=== PATIENT | male | born 1960 | race Caucasian/White ===

== ENCOUNTER 2016-07-14 02:09 | Emergency (ER) | payer OTHER ==
[~2016-07-14] VITALS: Ht 177.8 cm; Wt 160.0 kg
[2016-07-14 02:20] VITALS: Ht 177.8 cm; Wt 160.0 kg
[2016-07-14 02:49] LABS: ADD SCAN DIFF NO
[2016-07-14 02:51] LABS: BASOPHILS % 0.4 % (0.0-2.0); EOSINOPHILS # 0.1 10^3/ul (0.0-0.5); HEMATOCRIT 42.5 % (42.0-52.0); HEMOGLOBIN 14.3 g/dl (14.0-18.0); LYMPHOCYTES # 2.7 10^3/ul (0.8-2.9); LYMPHOCYTES % 26.8 % (15.0-51.0); MEAN CORPUSCULAR HEMOGLOBIN 30.6 pg (29.0-33.0); MEAN CORPUSCULAR HGB CONC 33.6 g/dl (32.0-37.0); MEAN PLATELET VOLUME 10.9 fl (7.4-10.4); MONOCYTE # 0.6 10^3/ul (0.3-0.9); MONOCYTES % 5.7 % (0.0-11.0); NEUTROPHIL # 6.7 10^3/ul (1.6-7.5); NEUTROPHILS % 65.1 % (39.0-77.0); PLATELET COUNT 141 10^3/UL (140-415); RED BLOOD COUNT 4.67 10^6/ul (4.70-6.10); RED CELL DISTRIBUTION WIDTH 12.8 % (11.5-14.5); WHITE BLOOD COUNT 10.2 10^3/ul (4.8-10.8)
[2016-07-14 03:03] LABS: CHLORIDE 108 mmol/L (97-110)
[2016-07-14 03:04] LABS: INR 0.91; POTASSIUM 3.9 mmol/L (3.5-5.1); PROTIME 12.3 Sec (12.2-14.2); SODIUM 146 mmol/L (135-144)
[2016-07-14 03:06] LABS: ALANINE AMINOTRANSFERASE 29 IU/L (13-69); ALBUMIN/GLOBULIN RATIO 1.29; ALKALINE PHOSPHATASE 106 IU/L (42-121); ANION GAP 22 (8-16); ASPARTATE AMINO TRANSFERASE 18 IU/L (15-46); BLOOD UREA NITROGEN 16 mg/dl (7-20); CARBON DIOXIDE 20 mmol/L (21-31); CREATININE 0.82 mg/dl (0.61-1.24); TOTAL PROTEIN 7.1 g/dl (6.1-8.1)
[2016-07-14 03:07] LABS: CALCIUM 9.4 mg/dl (8.4-10.2); GLUCOSE 178 mg/dl (70-220)
[2016-07-14 03:15] LABS: B-TYPE NATRIURETIC PEPTIDE 265 PG/ML (0-125)
[2016-07-14 03:20] LABS: PLATELET ESTIMATE PLT APPEAR ADEQUATE
[2016-07-14 03:21] LABS: TROPONIN-I < 0.012 ng/ml (0.00-0.12)
--- NOTE | 2016-07-14 03:22 | RADRPT ---
PROCEDURE: CHEST - 1 VIEW CLINICAL INDICATION: 56-year-old male with shortness of breath. TECHNIQUE: A single frontal AP view of the chest was performed portably. The images were reviewed on a PACS workstation. COMPARISON: None. FINDINGS: The cardiomediastinal silhouette is enlarged. There is pulmonary vascular congestion. There is a s hallow inspiration. There is mild bibasilar subsegmental atelectasis. There is no evidence for foc al consolidation. There is no evidence for pneumothorax. The osseous structures are intact. IMPRESSION: 1. Cardiomegaly. 2. Pulmonary vascular congestion. 3. Shallow inspiration. 4. Mild bibasilar subsegmental atelectasis. .Nael Trotter MD, Date Time Electronically viewed and signed by .Nael Trotter MD, on 07/14/2016 03:22 .M/
--- NOTE | 2016-07-14 05:01 | ERD ---
ER Documentation Chief Complaint Date/Time DATE: 07/14/16 TIME: 04:59 Chief Complaint short of breath after drinking this evening HPI . This is a very pleasant 56-year-old male who comes in with shortness of breath after drinking this evening. He denies any chest pain. Films it is difficult to arouse. Upon arrival to the ER, patient says he drank a bottle and a half of vodka which is 5 is difficult to arouse. He said the shortness of breath is resolved as well. Patient has a history of COPD secondary to multi -pack-year history of smoking ROS All systems reviewed and are negative except as per history of present illness. PMhx/Soc Hx Alcohol Use: Yes (smells of alcohol) Hx Substance Use: No Hx Tobacco Use: Yes Smoking Status: Unknown if ever smoked Physical Exam Vitals Vital Signs Date Time Temp Pulse Resp B/P Pulse Ox O2 Delivery O2 Flow Rate FiO2 07/14/16 02:58 75 26 114/61 92 Room Air 07/14/16 02:35 Nasal Cannula 3 07/14/16 02:20 95.8 80 17 110/96 93 07/14/16 02:19 94 3.0 Physical Exam Const: [] Head: Atraumatic Eyes: Normal Conjunctiva ENT: Normal External Ears, Nose and Mouth. Neck: Full range of motion..~ No meningismus. Resp: Clear to auscultation bilaterally Cardio: Regular rate and rhythm, no murmurs Abd: Soft, non tender, non distended. Normal bowel sounds Skin: No petechiae or rashes Back: No midline or flank tenderness Ext: No cyanosis, or edema Neur: Awake and alert Psych: Normal Mood and Affect Result Diagram: 07/14/16 0235 07/14/16 0235 Results 24 hrs Laboratory Tests Test 07/14/16 02:35 Activated Partial Thromboplast Time 20.0Sec Alanine Aminotransferase (ALT/SGPT) 29IU/L Albumin 4.0g/dl Albumin/Globulin Ratio 1.29 Alkaline Phosphatase 106IU/L Anion Gap 22 Aspartate Amino Transf (AST/SGOT) 18IU/L B-Type Natriuretic Peptide 265PG/ML Basophils # 0.010^3/ul Basophils % 0.4% Blood Urea Nitrogen 16mg/dl Calcium Level 9.4mg/dl Carbon Dioxide Level 20mmol/L Chloride Level 108mmol/L Clumped Platelets Creatinine 0.82mg/dl Direct Bilirubin 0.00mg/dl Eosinophils # 0.110^3/ul Eosinophils % 1.0% Globulin 3.10g/dl Glucose Level 178mg/dl Hematocrit 42.5% Hemoglobin 14.3g/dl INR International Normalized Ratio 0.91 Indirect Bilirubin 0.0mg/dl Lymphocytes # 2.710^3/ul Lymphocytes % 26.8% Mean Corpuscular Hemoglobin 30.6pg Mean Corpuscular Hemoglobin Concent 33.6g/dl Mean Corpuscular Volume 91.0fl Mean Platelet Volume 10.9fl Monocytes # 0.610^3/ul Monocytes % 5.7% Neutrophils # 6.710^3/ul Neutrophils % 65.1% Nucleated Red Blood Cells # 0.010^3/ul Nucleated Red Blood Cells % 0.0/100WBC Platelet Count 29912^3/UL Platelet Estimate PLT APPEAR ADEQUATE Potassium Level 3.9mmol/L Prothrombin Time 12.3Sec Prothrombin Time Ratio 1.0 Red Blood Count 4.6710^6/ul Red Cell Distribution Width 12.8% Sodium Level 146mmol/L Total Bilirubin 0.0mg/dl Total Protein 7.1g/dl Troponin I < 0.012ng/ml White Blood Count 10.210^3/ul Procedures/MDM EKG: Rate/Rhythm: Normal Sinus Rhythm QRS, ST, T-waves: No changes consistent w/ acute ischemia Impression: No evidence of ischemia or arrhythmia Chest X-ray 1V Interpreted by me: Soft Tissue: No acute abnormalities Bones: No acute abnormalities Mediastinum/Cardiac Silhouette/Lungs: No acute abnormalities Patient's thoracic symptoms have stabilized while in the department and are stable for outpatient follow up. Exam and work up not consistent w/ ischemia, arrhythmia, PE or dissection. 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 At this point is clinically stable. Is feeling better. We discharged home. Departure Diagnosis: Primary Impression: Shortness of breath Condition: Stable Patient Instructions: Alcohol Intoxication, Sleep Apnea, Obstructive (Adult) KUSH MORILLO Jul 14, 2016 05:00
[2016-07-14 05:44] VITALS: BP 111/64; PULSE 84; RESP 16; TEMP 97.9
== END 2016-07-14 05:45 | disposition home or self-care (01) ==
LOC: E/R 02:09
DX: R06.02 Shortness of breath (principal); I10 Essential (primary) hypertension; E11.9 Type 2 diabetes mellitus without complications; J44.9 Chronic obstructive pulmonary disease, unspecified; Z87.891 Personal history of nicotine dependence
CPT/HCPCS: 36415; 71010; 80053; 83880; 84484; 85025; 85610; 85730; 93005; Z7502; Z7610